=== PATIENT | female | born 1965 | race Caucasian/White ===

== ENCOUNTER 2016-09-13 07:25 | Day surgery (SDC) | payer MEDICAID ==
[2016-09-13] MEDS ORDERED: LIDOCAINE 1% 5 ML SDV ONE (07:50)
[2016-09-13] MEDS ORDERED: PROPOFOL/EMULSION 500 MG/50 ML BOTTLE IV ONE (07:50)
[2016-09-13] MEDS ORDERED: LIDOCAINE 2% 5 ML SDV ONE (07:51)
[2016-09-13] MEDS ORDERED: MIDAZOLAM 2 MG/2 ML VIAL ONE (08:19)
[2016-09-13] MEDS ORDERED: NS 1,000 ML IV SCH (08:30)
[2016-09-13] MEDS ORDERED: PROPOFOL 200 MG/20 ML VIAL ONE (08:41)
--- NOTE | 2016-09-13 11:20 | GPN ---
[f rep st] PROCEDURE NOTE DATE OF PROCEDURE: 09/13/2016 PROCEDURE: Incomplete colonoscopy due to prep. INDICATION: The patient is a 51-year-old female who presents for screening colonoscopy. CONSENT: The risks, benefits, and alternatives of the procedure were discussed in great detail with the patient. The risk of infection, bleeding, perforation , and sedation were discussed. All questions were answered. Informed consent was obtained. MEDICATIONS: Propofol. Please see Anesthesia record for details. ESTIMATED BLOOD LOSS: Insignificant. COLONOSCOPY EVALUATION: A rectal examination was done and no palpable masses were felt. The was scope was introduced into the rectum and advanced to the ascending colon. A large amount of stool was seen throughout the colon. In the cecum, which was seen in the distance, a large amount of solid stool was seen obscuring most of the visualization. The procedure was thus terminated due to non adequate visualization. IMPRESSION: Poor prep. RECOMMENDATIONS: Repeat colonoscopy with a 2-day prep to be scheduled in next several weeks. /[id number]/MODL MTDD
== END 2016-09-13 10:30 | disposition home or self-care (01) ==
LOC: FSGY 07:25
PROVIDERS: ATTEND Internal Medicine Gastroenterology
PROC: 0DJD8ZZ Inspection of Lower Intestinal Tract, Via Natural or Artificial Opening Endoscopic (ICD-10-PCS; principal; 2016-09-13 08:30)
DX: Z12.11 Encounter for screening for malignant neoplasm of colon (principal); Z53.09 Procedure and treatment not carried out because of other contraindication; I10 Essential (primary) hypertension; G47.33 Obstructive sleep apnea (adult) (pediatric)
CPT/HCPCS: J2250; J2704

== ENCOUNTER → 2017-12-26 | Outpatient (CLI) | payer MEDICAID | LOC: FIMAGING 14:49 | PROVIDERS: ATTEND Family Medicine | DX: D25.9 Leiomyoma of uterus, unspecified (principal); N88.8 Other specified noninflammatory disorders of cervix uteri; N83.202 Unspecified ovarian cyst, left side ==

== ENCOUNTER 2018-04-24 18:38 | Emergency (ER) | payer MEDICAID, OTHER ==
--- NOTE | 2018-04-24 19:36 | EDPHY ---
HPI/HX/ROS/PE/MDM Narrative: CHIEF COMPLAINT: "I have a bilateral PEs;" shortness of breath HPI: The patient is an anticoagulated 52 y/o female arriving with her complaining of shortness of breath onset 2 days ago with associated bilateral foot swelling. She was diagnosed with bilateral PEs 60 days following a D&C and hysteroscopy and extended sedentary period. She reports she is complaint with her 20mg Xarelto every day. She has not had a follow up CT scan since the initial diagnostic one two months ago. She reports some baseline dyspnea that worsened over the last 2 days and describes "gasping for air" during simple tasks like getting dressed for work. It's unclear if she's had associated chest pain with this. She also mentions she vomited today. 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 No recent illness or trauma. REVIEW OF SYSTEMS: A comprehensive 10 system review of systems is otherwise negative aside from elements mentioned in the history of present illness. PMH: Obesity, bilateral PEs - Xarelto, chronic kidney disease, gastric bypass, D &C and hysteroscopy. Recent hospitalization at [facility]. Prior medical records reviewed via [employer]. SOCIAL HISTORY: at bedside. 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 Followed by [employer] PHYSICAL EXAM: General:Patient is alert, in no acute distress. She appears comfortable and is quite talkative. ENT:Eyes are normal to inspection. ENT inspection normal. Neck: Normal inspection. Full range of motion. Respiratory:No respiratory distress. Breath sounds normal bilaterally. Cardiovascular: Regular rate and rhythm. Strong peripheral pulses. Normal cap refill. Abdomen:The abdomen is nontender to palpation. There are no peritoneal signs. Back: Normal to inspection. No tenderness to palpation. Skin: Normal color. No rash. Warm and dry. Extremities: Bilateral pedal edema, otherwise normal appearance. Full range of motion. Neuro: Oriented x3. Normal motor function. Normal sensory function. ED Course: This is a 52 y/o female with a history of bilateral PEs diagnosed 60 days ago after a surgery who presents with a 2-day history of [id number] dyspnea and new bilateral feet swelling. Lung sounds are clear. Bilateral pedal edema noted. She reports she is compliant with her Xarelto, decreasing suspicion for recurrent blood clot. Plan for EKG, chest x-ray, labs. The 12 lead EKG was interpreted by myself. See hard copy and/or "tracemaster" electronic copy for interpretation. Chest x-ray: nothing acute. Negative POC troponin. BNP mildly elevated. Chest CTA: negative. Reassessed patient and discussed findings. No concerning etiology for her symptoms found during assessment here today. Recommended following up with her PCP regarding increasing her diuretic and for continued symptoms. Return precautions discussed. She is comfortable with plan for discharge home. MDM: This patient presents with dyspnea of unknown etiology. We performed an extensive workup here in the ED which is negative for signs of PE, PNA, PTx, CHF , ACS. The patient may benefit from an increase in her diuretics, but there are no indications that emergent diuresis or observation are indicated. - Data Points Imaging Results: Imaging Impressions Chest X-Ray 04/24/18 19:34 Impression: No acute pulmonary disease. Imaging: I viewed and interpreted images myself Laboratory Results: Laboratory Results 04/24/18 19:25 04/24/18 19:25 04/24/18 04/24/18 04/24/18 19:46 19:25 19:25 WBC 10.38 10^3/uL H 10^3/uL (3.80-9.50) RBC 4.85 10^6/uL 10^6/uL (4.18-5.33) Hgb 13.5 g/dL g/dL (12.6-16.3) Hct 41.4 % % (38.0-47.0) MCV 85.4 fL fL (81.5-99.8) MCH 27.8 pg L pg (27.9-34.1) MCHC 32.6 g/dL g/dL (32.4-36.7) RDW 16.2 % H % (11.5-15.2) Plt Count 313 10^3/uL 10^3/uL (150-400) MPV 10.6 fL fL (8.7-11.7) Neut % (Auto) 66.0 % % (39.3-74.2) Lymph % (Auto) 27.7 % % (15.0-45.0) Republic % (Auto) 4.3 % L % (4.5-13.0) Eos % (Auto) 1.1 % % (0.6-7.6) Baso % (Auto) 0.5 % % (0.3-1.7) Nucleat RBC Rel Count 0.0 % % (0.0-0.2) Absolute Neuts (auto) 6.85 10^3/uL H 10^3/uL (1.70-6.50) Absolute Lymphs (auto) 2.88 10^3/uL 10^3/uL (1.00-3.00) Absolute Monos (auto) 0.45 10^3/uL 10^3/uL (0.30-0.80) Absolute Eos (auto) 0.11 10^3/uL 10^3/uL (0.03-0.40) Absolute Basos (auto) 0.05 10^3/uL 10^3/uL (0.02-0.10) Absolute Nucleated RBC 0.00 10^3/uL 10^3/uL (0-0.01) Immature Gran % 0.4 % % (0.0-1.1) Immature Gran # 0.04 10^3/uL 10^3/uL (0.00-0.10) Sodium 140 mEq/L mEq/L (135-145) Potassium 3.2 mEq/L L mEq/L (3.3-5.0) Chloride 104 mEq/L mEq/L (97-110) Carbon Dioxide 26 mEq/l mEq/l (22-31) Anion Gap 10 mEq/L mEq/L (8-16) BUN 21 mg/dL mg/dL (7-23) Creatinine 0.9 mg/dL mg/dL (0.6-1.0) Estimated GFR > 60 Glucose 95 mg/dL mg/dL (70-100) Calcium 9.8 mg/dL mg/dL (8.5-10.4) POC Troponin I 0.01 ng/mL ng/mL (0.00-0.08) NT-Pro-B Natriuret Pep 347 pg/mL H pg/mL (0-125) Point of Care Test Results: Chemistry 04/24/18 19:46 POC Troponin I 0.01 ng/mL ng/mL (0.00-0.08) General Time Seen by Provider: 04/24/18 19:14 Initial Vital Signs: Initial Vital Signs Temperature (C) 36.8 C 04/24/18 18:45 Heart Rate 74 04/24/18 18:45 Respiratory Rate 18 04/24/18 18:45 Blood Pressure 165/94 H 04/24/18 18:45 O2 Sat (%) 97 04/24/18 18:45 O2 Delivery Mode Room Air Allergies/Adverse Reactions: No Known Allergies Allergy (Verified 04/24/18 18:42) Home Medications: Medication Instructions Recorded Atorvastatin Calcium 04/24/18 Clonidine 04/24/18 Levothyroxine 04/24/18 Losartan Potassium 04/24/18 Potassium Chloride 04/24/18 Xarelto 04/24/18 Departure - Departure Disposition: Home, Routine, Self-Care Clinical Impression: Shortness of breath Condition: Good Instructions: Shortness of Breath (ED) Additional Instructions: Follow up with your primary care provider to discuss diuretic dosage and for continued symptoms. Return to the nearest ED for worsening of condition. Referrals: Zach Jacobs MD [Medical Doctor] - As per Instructions Report Scribed for: Andres Longoria Report Scribed by: Paulette Zuniga Date of Report: 04/24/18 Time of Report: 20:12 Physician Review and Approval Statement: Portions of this note were transcribed by an ED scribe. I personally performed the history, physical exam, and medical decision making; and confirm the accuracy of the information in the transcribed note.
[2018-04-24 19:44] LABS: PLATELET COUNT 313 10^3/uL (150-400)
[2018-04-24] MEDS ORDERED: IOPAMIDOL (ISOVUE 370) 100 ML BTL IV ONE (20:21)
[2018-04-24 20:58] VITALS: BP 160/111
--- NOTE | 2018-04-24 21:35 | CPEKG ---
Test Reason : OPEN Blood Pressure : / mmHG Vent. Rate : 074 BPM Atrial Rate : 074 BPM P-R Int : 146 ms QRS Dur : 095 ms QT Int : 403 ms P-R-T Axes : 001 -20 100 degrees QTc Int : 448 ms Sinus rhythm LVH with secondary repolarization abnormality Confirmed by Andres Longoria ([id number]) on 04/24/2018 9:34:38 PM Referred By: Confirmed By:Andres Longoria
== END 2018-04-24 21:17 | disposition home or self-care (01) ==
DX: R06.02 Shortness of breath (principal); Z86.718 Personal history of other venous thrombosis and embolism; Z90.710 Acquired absence of both cervix and uterus; N18.9 Chronic kidney disease, unspecified; Z98.84 Bariatric surgery status
CPT/HCPCS: 84484-PO; Q9967

== ENCOUNTER → 2018-11-11 | Outpatient (CLI) | payer OTHER | LOC: EMCIMAGING 09:01 | PROVIDERS: ATTEND Family Medicine | DX: Z12.31 Encounter for screening mammogram for malignant neoplasm of breast (principal) | CPT/HCPCS: 77067-PN ==